=== PATIENT | female | born 1970 | race African-American/Black ===

== ENCOUNTER 2017-07-07 23:03 | Inpatient (IN) | payer OTHER ==
--- NOTE | 2017-07-07 23:38 | PDOC ---
History of Present Illness - General Chief Complaint: Syncope/Near Syncope Stated Complaint: WEAK, DIZZY Time Seen by Provider: 07/07/17 23:23 History Source: Patient - History of Present Illness Initial Comments: 07/07/17 23:34 47-year-old female complaining of 2 episodes of syncope prior to arrival in feeling weak. As her patient hasn't been eating well is drinking lots of fluids. Patient reports one episodes of diarrhea prior to arrival currently with no abdominal pain, nausea, vomiting, chest pain, urinary symptoms, diaphoresis patient reports dizziness and feeling weak at this time. Patient has a past medical history of SLE, TTP, end-stage renal disease (Tuesday , Tuesday, Tuesday dialysis) patient is currently on methotrexate, CellCept PMD: Dr. Reyna ([facility]) Rheumatology: Dr. Jacobo([facility]) Past History - Past Medical History Allergies/Adverse Reactions: Allergies Allergy/AdvReac Type Severity Reaction Status Date / Time Penicillins Allergy Rash Verified 07/08/17 01:12 tramadol Allergy Rash Verified 07/08/17 01:12 Review of Systems - Review of Systems Able to Perform ROS?: Yes Constitutional: Yes: Weakness Cardiac (ROS): No: Symptoms Reported, See HPI, Chest Pain, Edema, Irregular Heart Rate, Lightheadedness, Palpitations, Syncope, Chest Tightness, Other ABD/GI: No: Symptoms Reported, See HPI, Abdominal Distended, Abd. Pain w/ defecation, Blood Streaked Bowels, Constipated, Diarrhea, Difficulty Swallowing , Nausea, Poor Appetite, Poor Fluid Intake, Rectal Bleeding, Vomiting, Indigestion, Abdominal cramping, Tarry Stools, Other Neurological: Yes: Weakness, Dizziness *Physical Exam - Vital Signs Last Vital Signs Temp Pulse Resp BP Pulse Ox 99.1 F 76 18 107/71 100 07/07/17 23:25 07/07/17 23:25 07/07/17 23:25 07/07/17 23:25 07/07/17 23:25 - Physical Exam General Appearance: Yes: Appropriately Dressed HEENT: positive: Other (alopecia. nomorcephalic) Respiratory/Chest: positive: Lungs Clear, Normal Breath Sounds Cardiovascular: positive: Regular Rhythm, Regular Rate Gastrointestinal/Abdominal: positive: Normal Bowel Sounds, Soft, Pulsatile Mass Musculoskeletal: positive: Normal Inspection Extremity: positive: Other (dry mouth) Integumentary: positive: Dry, Warm, Pale Neurologic: positive: Fully Oriented, Alert Heart Score/ECG Review - ECG Intrepretation Rhythm: Regular Rhythm Comment:: 07/08/17 01:56 NSR 78 bpm . nonspecific t wave abnormality. prolonged QT 424/483ms ED Treatment Course - LABORATORY CBC & Chemistry Diagram: 07/07/17 23:45 07/07/17 23:45 - ADDITIONAL ORDERS Additional order review: Laboratory Results 07/07/17 07/07/17 07/07/17 23:45 23:45 23:45 PT with INR 13.60 H INR 1.20 H Sodium 132 L Potassium 3.2 L Chloride 93 L Carbon Dioxide 25 Anion Gap 14 BUN 37 H Creatinine 5.8 H Creat Clearance w eGFR 7.75 Random Glucose 105 Calcium 8.8 Magnesium 1.8 Total Bilirubin 0.5 AST 12 L ALT 14 Alkaline Phosphatase 77 Creatine Kinase 31 Troponin I 0.04 Total Protein 7.1 Albumin 3.3 L Serum , Qual Negative 07/07/17 07/07/17 23:45 11:45 RBC 3.42 L MCV 79.0 L MCHC 33.3 RDW 14.1 MPV 7.5 Neutrophils % No Result Required. Lymphocytes % No Result Required. - RADIOLOGY Radiology Studies Ordered: Category Date Time Status HEAD CT WITHOUT CONTRAST [CT] Stat CT Scan 07/08/17 00:03 Taken CHEST X-RAY PORTABLE* [RAD] Stat Radiology 07/07/17 23:36 Completed Radiograph Interpretation: 07/08/17 02:34 IMPRESSION: No acute intracranial hemorrhage mass effect or midline shift. Mild nonspecific periventricular predominant low density throughout the deep white matter is most likely due to mild small vessel ischemic white matter disease. Chronic right parietal and occipital lobe white matter and cortical infarcts encephalomalacia. Chronic bilateral frontal lobe white matter infarction encephalomalacia. No evidence of a large territory of subacute stroke. - Medications Given in the ED: ED Medications Discontinued Medications Generic Name Dose Route Start Last Admin Trade Name Freq PRN Reason Stop Dose Admin Potassium Chloride 20 meq 07/08/17 00:42 07/08/17 01:12 K-Dur - PO 07/08/17 00:43 20 meq ONCE ONE Administration Sodium Chloride 250 ml 07/08/17 01:55 07/08/17 02:08 Normal Saline - IV 07/08/17 01:56 250 ml ONCE ONE Administration Progress Note - Progress Note Progress Note: [facility] contacted. Patient most recent admission 01/2017 for AMS . hospital course complicated by renal failure with hemodialysis., refractory TTP and intubation, and prolonged hospital stay. Patient seen by rheumatology 05/2017 CBC hgb/plt : 5.2/203. patient was seen by dermatology yesterday with CBC / PLT 1.0/86. methotrexate started 1 month ago. A: neutropenia likely methotrexate induced. pancytopenia; syncope P: cbc cmp blood culture ua urine culture normal saline bolus 250ml potassium x1. Medical Decision Making - Medical Decision Making 07/08/17 01:44 patient is requesting to be transferred back to [facility] as patient's team of doctors are there. transfer center at [facility] called. pending called back from medicine service. 07/08/17 01:45 unable to have accepting physcian at [facility]. patient to be admitted at [facility] . hospitalist service paged 07/08/17 03:[address] oconnor *DC/Admit/Observation/Transfer Diagnosis at time of Disposition: Syncope and collapse, Pancytopenia Neutropenia Qualifiers: Neutropenia type: other drug-induced Qualified Code(s): D70.2 - Other drug- induced agranulocytosis Head trauma Qualifiers: Encounter type: initial encounter Qualified Code(s): S09.90XA - Unspecified injury of head, initial encounter - Discharge Dispostion Admit: Yes - Referrals Referrals: Primo Reyna MD [Primary Care Provider] - - Patient Instructions - Post Discharge Activity
[2017-07-07 23:55] LABS: MCH 26.3 pg (25.7-33.7); MCHC 33.3 g/dl (32.0-36.0); MEAN PLT VOLUME 7.5 fl (7.5-11.1); PLATELET COUNT 65 K/MM3 (134-434); RBC 3.42 M/mm3 (3.60-5.2); RDW 14.1 % (11.6-15.6)
[2017-07-08 00:02] LABS: WHITE BLOOD COUNT 0.7 K/mm3 (4.0-10.0)
[2017-07-08 00:11] LABS: INR 1.2 (0.82-1.09); PROTHROMBIN TIME (PATIENT) 13.6 SEC (9.98-11.88)
[2017-07-08 00:20] LABS: ALBUMIN 3.3 g/dl (3.4-5.0); ANION GAP 14 (8-16); BILIRUBIN,TOTAL 0.5 mg/dL (0.2-1.0); BLOOD UREA NITROGEN 37 mg/dL (7-18); CALCIUM 8.8 mg/dL (8.5-10.1); CHLORIDE 93 mmol/L (98-107); CO2 25 mmol/L (21-32); CREATININE 5.8 mg/dL (0.55-1.02); GLUCOSE,RANDOM 105 mg/dL (74-106); MAGNESIUM 1.8 mg/dL (1.8-2.4); POTASSIUM 3.2 mmol/L (3.5-5.1); SGOT/AST 12 U/L (15-37); SGPT/ALT 14 U/L (12-78); SODIUM 132 mmol/L (136-145)
[2017-07-08 00:23] LABS: ALK PHOS 77 U/L (45-117); TOT PROT 7.1 g/dl (6.4-8.2)
[2017-07-08] MEDS ORDERED: POTASSIUM CHLORIDE TABS 20 MEQ TABLET.ER (FP) PO ONE ×2 (00:42→11:45)
--- NOTE | 2017-07-08 00:51 | PDOC ---
*Physical Exam - Vital Signs Last Vital Signs Temp Pulse Resp BP Pulse Ox 99.1 F 76 18 107/71 100 07/07/17 23:25 07/07/17 23:25 07/07/17 23:25 07/07/17 23:25 07/07/17 23:25 - Physical Exam Comments: 07/08/17 00:46 pt is awake, alopecia, speaking in full sentences, moving all extremities no complaints of cp states mild rhinorrhea yesterday no cough, no abd pain. no n/v/d. No fevers. c/o feeling cold today. ED Treatment Course - LABORATORY CBC & Chemistry Diagram: 07/07/17 23:45 07/07/17 23:45 - ADDITIONAL ORDERS Additional order review: Laboratory Results 07/07/17 11:45 Sodium 132 L Potassium 3.2 L Chloride 93 L Carbon Dioxide 25 Anion Gap 14 BUN 37 H Creatinine 5.8 H Creat Clearance w eGFR 7.75 Random Glucose 105 Calcium 8.8 Magnesium 1.8 Total Bilirubin 0.5 AST 12 L ALT 14 Alkaline Phosphatase 77 Creatine Kinase 31 Troponin I 0.04 Total Protein 7.1 Albumin 3.3 L 07/07/17 11:45 RBC 3.42 L MCV 79.0 L MCHC 33.3 RDW 14.1 MPV 7.5 Neutrophils % No Result Required. Lymphocytes % No Result Required. Medical Decision Making - Medical Decision Making 07/08/17 00:48 47yo female with syncope x 2 tonight, hit her head tonight -on methotrexate x 1 month -also on cellcept and prednisone for lupus -will check labs, ekg, cxr, trop, head ct -currently on HD - m.w.f -all docs are at [facility] 07/08/17 00:50 pt with pancytopenia and severe neutropenia on labs poss bone marrow reaction to methotrexate per [facility] labs yesterday - wbc was 1 yesterday 07/08/17 00:51 pt updated on her labs pt requesting transfer to [facility] for admission. states all her physicians are at [facility] and she wants to be treated there. 07/08/17 00:59 call placed to [facility] to arrange for transfer and admission for pancytopenia, neutropenia pt requesting transfer 07/08/17 01:43 currently pending call back from [facility] for transfer *DC/Admit/Observation/Transfer Diagnosis at time of Disposition: Syncope and collapse, Pancytopenia Neutropenia Qualifiers: Neutropenia type: other drug-induced Qualified Code(s): D70.2 - Other drug- induced agranulocytosis Head trauma Qualifiers: Encounter type: initial encounter Qualified Code(s): S09.90XA - Unspecified injury of head, initial encounter - Referrals Referrals: Primo Reyna MD [Primary Care Provider] - - Patient Instructions - Post Discharge Activity
[2017-07-08] MEDS ORDERED: SODIUM CHLORIDE 0.9% 500 ML INFUS.BAG IV ONE (01:55)
[2017-07-08 02:59] LABS: ANISOCYTOSIS 2+; MACROCYTOSIS 0; PLATELET ESTIMATE DECREASED
--- NOTE | 2017-07-08 03:54 | HP ---
CHIEF COMPLAINT: two episodes of syncope x 1 day PCP: Dr. Reyna -[facility] HISTORY OF PRESENT ILLNESS: 47 y/o F with PMH pemphigoid and systemic SLE (dx November 2017; on rituximab, prednisone, cellcept, started on MTX in June. Had been on in the past for bullous pemphigoid however was d/c- did not have reactions to prior), TTP (dx 10 yrs ago, last plasma therapy done in January 2017, has not had plasma therapy since), ESRD (M, W, F; last dialysis Tuesday), recent admission d/c January 2017 [facility] (4 month stay) for complicated admission which included intubation, plasma therapy, who presents to the ED c/o two episodes of syncope. Yesterday evening, pt was at home when she got up from her bed to walk to her nephew's room. Pt felt incredibly weak and ended up falling in the hallway as per . Before the event, pt had dizziness and was told that her legs gave out. Pt had +LOC, head trauma, and woke up while she was being helped off the floor. She does not know how long she was on the ground for, and denies palpitations, or loss of bladder or bowel incontinence during the event. Pt states that a few hours later, she had another episode when walking to the toilet, this time she fell once again in the same form. Both events were witnessed. Over the past few days, pt has no appetite, a generalized KIMBROUGH, and loose BMs. She believes her weakness also stems from her dialysis sessions. She denies recent viral illnesses, fever, chills, chest pain or pressure, or change in urinary habits. Her salad bar clerk at [facility] is Dr. Jacobo. Pt was started on cellcept in January. In May, pt's WBC count was 5, platelets 203. In June, when she was started on MTX, her WBC count was 1, platelets 86. Pt received an alert from [facility] since her count was so low. As per daughter, this evening her doctor at [facility] was reached and stated to stop her MTX d/t to her severe neutropenia. ER course was notable for: (1) Kdur 20mg PO x 1 (2) NaCl 250ms x 1 (3) Head CT Recent Travel: none PAST MEDICAL HISTORY: as above PAST SURGICAL HISTORY: L hip replacement (2011) Social History: Smoking: denies Alcohol: socially Drugs: denies Family History: daughter- passed from lupus age 19. PCN- rash Allergies Penicillins Allergy (Verified 07/08/17 01:12) Rash tramadol Allergy (Verified 07/08/17 01:12) Rash HOME MEDICATIONS: MTX 2.5mg PO - Tuesday PM, Sat AM, Sat PM (3 doses a week) Prednisone - took 15 mg (), will take 12.5mg (Tuesday), 15mg (Tuesday), 12.5 mg (Tuesday) Cellcept: 2000mg REVIEW OF SYSTEMS CONSTITUTIONAL: +generalized weakness, loss of appetite Absent: fever, chills, diaphoresis, generalized weakness, malaise, loss of appetite, weight change HEENT: Absent: rhinorrhea, nasal congestion, throat pain, throat swelling, difficulty swallowing, mouth swelling, ear pain, eye pain, visual changes CARDIOVASCULAR: +syncope Absent: chest pain, syncope, palpitations, irregular heart rate, lightheadedness , peripheral edema RESPIRATORY: Absent: cough, shortness of breath, dyspnea with exertion, orthopnea, wheezing, stridor, hemoptysis GASTROINTESTINAL: Absent: abdominal pain, abdominal distension, nausea, vomiting, diarrhea, constipation, melena, hematochezia GENITOURINARY: Absent: dysuria, frequency, urgency, hesitancy, hematuria, flank pain, genital pain MUSCULOSKELETAL: Absent: myalgia, arthralgia, joint swelling, back pain, neck pain SKIN: Absent: rash, itching, pallor HEMATOLOGIC/IMMUNOLOGIC: Absent: easy bleeding, easy bruising, lymphadenopathy, frequent infections ENDOCRINE: Absent: unexplained weight gain, unexplained weight loss, heat intolerance, cold intolerance NEUROLOGIC: +headache Absent: headache, focal weakness or paresthesias, dizziness, unsteady gait, seizure, mental status changes, bladder or bowel incontinence PSYCHIATRIC: Absent: anxiety, depression, suicidal or homicidal ideation, hallucinations. PHYSICAL EXAMINATION Vital Signs - 24 hr 07/07/17 23:25 Temperature 99.1 F Pulse Rate 76 Respiratory 18 Rate Blood Pressure 107/71 O2 Sat by Pulse 100 Oximetry (%) GENERAL: Pale female, resting comfortably. Awake, alert, and fully oriented, in no acute distress. HEAD: Normal with no signs of trauma. +Alopecia EYES: Pupils equal, round and reactive to light, extraocular movements intact, sclera anicteric, conjunctiva clear. EARS, NOSE, THROAT: Ears normal, nares patent, oropharynx clear without exudates. No oral ulcers noted. Dry mucous membranes NECK: Normal range of motion, supple. LUNGS: Breath sounds equal, clear to auscultation bilaterally. No wheezes, and no crackles. No accessory muscle use. HEART: Regular rate and rhythm, normal S1 and S2 without murmur, rub or gallop. ABDOMEN: Soft, nontender, not distended, normoactive bowel sounds, no guarding, no rebound, no masses. MUSCULOSKELETAL: Normal range of motion at all joints. No bony deformities or tenderness. No CVA tenderness. UPPER EXTREMITIES: 2+ radial pulses, warm, well-perfused. No cyanosis. No clubbing. No peripheral edema. Old lesions on upper extremities LOWER EXTREMITIES: 2+ posterior tibial pulses, warm, well-perfused. No calf tenderness. No peripheral edema. NEUROLOGICAL: Cranial nerves II-XII intact. PSYCHIATRIC: Cooperative. SKIN: Dry Laboratory Results - last 24 hr 07/07/17 07/07/17 07/07/17 11:45 23:45 23:45 WBC 0.7 L* RBC 3.42 L Hgb 9.0 L Hct 27.0 L MCV 79.0 L MCH 26.3 MCHC 33.3 RDW 14.1 Plt Count 65 L MPV 7.5 Neutrophils % (Manual) 0.0 L Band Neutrophils % 0.9 Lymphocytes % (Manual) 72.0 H Monocytes % (Manual) 2 L Eosinophils % (Manual) 8.4 H Basophils % (Manual) 0.0 Myelocytes % (Man) 0 Promyelocytes % (Man) 0 Blast Cells % (Manual) 0 Nucleated RBC % 0 Metamyelocytes 0 Hypochromia 0 Platelet Estimate Decreased Polychromasia 1+ Poikilocytosis 1+ Anisocytosis 2+ Microcytosis 2+ Macrocytosis 0 PT with INR 13.60 H INR 1.20 H Albumin 07/07/17 07/07/17 23:45 23:45 PT with INR Sodium 132 L Potassium 3.2 L Chloride 93 L Carbon Dioxide 25 Anion Gap 14 BUN 37 H Creatinine 5.8 H Creat Clearance w eGFR 7.75 Random Glucose 105 Calcium 8.8 Magnesium 1.8 Total Bilirubin 0.5 AST 12 L ALT 14 Alkaline Phosphatase 77 Creatine Kinase 31 Troponin I 0.04 Total Protein 7.1 Albumin 3.3 L Serum , Qual Negative Micro -Blood cx - pending Radio -Head CT non-con: without signs of hemorrhage or infarct, however awaiting official read -CXR: without infiltrates or pleural effusions -EKG: NSR, non specific T wave changes, prolonged Qtc 483ms ASSESSMENT/PLAN: 47 y/o F with PMH pemphigoid and systemic SLE (dx November 2017; on rituximab, prednisone, cellcept, started on MTX in June), TTP (dx 10 yrs ago, last plasma therapy done in January 2017, has not had plasma therapy since), ESRD (M, W, F; last dialysis Tuesday), recent admission January 2017 [facility] for complicated admission which included intubation, plasma therapy, who presents to the ED c/o two episodes of syncope. Pt admitted to tele-obs for syncope. #Syncope likely 2/2 recent decreased PO intake -determine vasovagal, 2/2 weakness, cardiogenic, etc. -Likely 2/2 weakness, decreased PO intake -CTH: without signs of hemorrhage, however awaiting official report -Orthostatic vital signs -F/u ECHO -F/u Carotid doppler test -Telemetry monitoring -No need for IVF at this time; pt ESRD #Neutropenia, pancytopenia likely 2/2 MTX cellcept adverse effect -Will hold MTX an cellcept -Continue to watch for any signs of fever, can become emergent -Started on granix 350 mcg SQ daily to stim cell lines -Discuss with Information Analyst at [facility] - Dr. Jacobo -Neutropenic precautions -Rheum consult- Dr. Cohn #Pemphigoid, systemic SLE -Continue 12.5mg PO Prednisone (Tuesday), 15 (Tuesday), 12.5 (Tuesday) -Will need to verify rest of course -Will hold the following as can contribute to pancytopenia: cellcept 2000mg qd, MTX 2.5 mg PO qd #TTP -Continue outpatient f/u -Last plasma therapy in January 2017 -Heme consult - Dr. Song #ESRD -renal fnc likely worsened by TTP as well -Last session Tuesday -will need dialysis Tuesday - has R chest port site -Nephro consult- Dr. Story #Hypokalemia likely 2/2 ESRD -Received Kdur 20mg PO x 1 in ED -F/u BMP to monitor level -Replete as needed #F/E/N No fluids at this time - ESRD, will see renal serial lytes renal diet #PPX DVT: SCD's #Dispo Telemetry observation Visit type - Emergency Visit Emergency Visit: Yes ED Registration Date: 07/08/17 Care time: The patient presented to the Emergency Department on the above date and was hospitalized for further evaluation of their emergent condition. - New Patient This patient is new to me today: No - Critical Care Critical Care patient: No Hospitalist Screening - Colonoscopy Questionnaire Colonoscopy Questionnaire: Colonoscopy Questionnaire - Patient: 50 - 75 years old and never had a screening colonoscopy: Unknown History of colon or rectal polyps, or CA: Unknown History of IBD, Crohn's disease or UC: Unknown History of abdominal radiation therapy as a child: Unknown - Relative: 1 with colon or rectal CA, or polyps at age 60 or younger: Unknown Colon or rectal CA diagnosed at age 45 or younger: Unknown Multiple relatives with colon or rectal CA: Unknown - Outcome: Screening Result: Negative Screen
--- NOTE | 2017-07-08 04:31 | PN ---
Teaching Attending Note Name of Resident: Yue Miguel ATTENDING PHYSICIAN STATEMENT I saw and evaluated the patient. Chart, data reviewed. I reviewed the resident's note and discussed the case with the resident. I agree with the resident's findings and plan as documented. SUBJECTIVE: 47 y/o F with PMH bullous pemphigoid and systemic SLE (dx November 2017; on rituximab, prednisone, cellcept, started on MTX in June. Recent prolonged hospitalizations in [facility], admitted for TTP, resp failure, requiring intubation. Underwent plasmapheresis, complicated by [place] and subsequent ESRD, requiring HD. Patient now was found to be pancytopenic in ER (after starting methotrexate recently). On 07/07, patient experienced syncope x2 when walking. SHe did not have any shortness of breath, chest pain, or seizure episodes. august OBJECTIVE: Last Vital Signs Temp Pulse Resp BP Pulse Ox 98.7 F 89 18 140/89 95 07/08/17 04:22 07/08/17 04:22 07/08/17 04:22 07/08/17 04:22 07/08/17 05:30 General- appears chronically ill HEENT - alopecia, moist oral mucosa, no sinus tenderness neck -supple, scar in neck s/p catheter cv -s1+s2 + rrr chest- cta b/l , right chest HD catheter abdomen- soft, nt, no masses appreciated Ext- no pedal edema, warm Abnormal Lab Results 07/07/17 07/07/17 07/07/17 23:45 23:45 23:45 WBC 0.7 L* RBC 3.42 L Hgb 9.0 L Hct 27.0 L MCV 79.0 L Plt Count 65 L Neutrophils % (Manual) 0.0 L Lymphocytes % (Manual) 72.0 H Monocytes % (Manual) 2 L Eosinophils % (Manual) 8.4 H PT with INR 13.60 H INR 1.20 H Sodium 132 L Potassium 3.2 L Chloride 93 L BUN 37 H Creatinine 5.8 H AST 12 L Albumin 3.3 L ASSESSMENT AND PLAN: #Syncope x2 - may be related to poor PO intake. Should r/o vasovagal, orthostatic, or arrythmias. EKG with no ST- T changes. Troponin was negative x1. CT of head is negative for bleeds on my read. -observation-tele -repeat EKG -transthoracic echo -repeat troponin -check orthostatics -bed rest -fall precautions #Pancytopenia - likely 2/2 medications -such as methotrexate as she was recently started on this medication. Cellcept may contribute to this. No evidence of bleeding or infections. NO fevers. -hold cellcept and methorexate -will give filgastrim -monitor CBC -heme/onc evaluation -contact physicians at [facility] to obtain medical records #ESRD requiring HD -renal evaluation for HD DVT ppx -SCDs, avoid heparin in light of thrombocytopenia
[2017-07-08] MEDS ORDERED: ACETAMINOPHEN 325 MG TABLET (FP) PO ONE (05:41)
[2017-07-08] MEDS ORDERED: TBO-FILGRASTIM 300 MCG/0.5 ML DISP.SYRINGE SQ SCH (06:00)
[2017-07-08] MEDS ORDERED: LABETALOL HCL 100 MG TABLET (FP) PO SCH ×2 (06:00→08:00)
[2017-07-08 06:12] VITALS: BMI 25.7
[2017-07-08] MEDS ORDERED: LABETALOL HCL 100 MG TABLET (FP) ONE ×2 (06:51→12:53)
[2017-07-08] MEDS ORDERED: LABETALOL HCL 200 MG TABLET (FP) ONE ×2 (06:51→12:53)
[2017-07-08] MEDS: TBO-FILGRASTIM 300 MCG/0.5 ML DISP.SYRINGE SQ SCH ×2 (06:54→12:44)
[2017-07-08] MEDS: hydrALAZINE HCL 50 MG TABLET (FP) PO SCH ×2 (06:55→13:13)
[2017-07-08] MEDS: LABETALOL HCL 200 MG, LABETALOL HCL 100 MG PO SCH ×2 (06:55→13:12)
[2017-07-08] MEDS ORDERED: PATIENT'S OWN MEDICATION (NON-FORMULARY) (Oxycodone Hcl [Oxycodone Hcl] 10 MG) PO SCH (07:15)
[2017-07-08] MEDS ORDERED: ACETAMINOPHEN 325 MG TABLET (FP) PO PRN (07:53)
[2017-07-08] MEDS ORDERED: predniSONE 1 MG TABLET (FP) PO ONE (08:00)
[2017-07-08] MEDS ORDERED: PREDNISONE PO ONE (08:00)
[2017-07-08] MEDS ORDERED: predniSONE 10 MG TABLET (UD) ONE (08:14)
[2017-07-08] MEDS: oxyCODONE HCL 5 MG TABLET PO PRN ×2 (08:17→13:12)
[2017-07-08] MEDS ORDERED: hydrALAZINE HCL 50 MG TABLET (FP) PO SCH (09:00)
[2017-07-08 09:28] LABS: HEMATOCRIT 25.5 % (32.4-45.2); HEMOGLOBIN 8.5 GM/dL (10.7-15.3); MCH 26.1 pg (25.7-33.7); MCHC 33.4 g/dl (32.0-36.0); MEAN CELL VOLUME 78.1 fl (80-96); MEAN PLT VOLUME 7.3 fl (7.5-11.1); PLATELET COUNT 68 K/MM3 (134-434); RBC 3.26 M/mm3 (3.60-5.2); RDW 14.5 % (11.6-15.6)
[2017-07-08 09:37] LABS: ANION GAP 17 (8-16); BLOOD UREA NITROGEN 42 mg/dL (7-18); CALCIUM 9.1 mg/dL (8.5-10.1); CHLORIDE 94 mmol/L (98-107); CO2 23 mmol/L (21-32); CREATININE 6.4 mg/dL (0.55-1.02); GLUCOSE,RANDOM 99 mg/dL (74-106); MAGNESIUM 1.9 mg/dL (1.8-2.4); POTASSIUM 3.4 mmol/L (3.5-5.1); SODIUM 134 mmol/L (136-145)
[2017-07-08 09:59] LABS: WHITE BLOOD COUNT 1.3 K/mm3 (4.0-10.0)
[2017-07-08] MEDS ORDERED: RANITIDINE HCL 150 MG TABLET (FP) PO SCH (10:00)
--- NOTE | 2017-07-08 10:10 | EKG ---
Test Reason : Blood Pressure : / mmHG Vent. Rate : 078 BPM Atrial Rate : 078 BPM P-R Int : 148 ms QRS Dur : 074 ms QT Int : 424 ms P-R-T Axes : 036 047 -18 degrees QTc Int : 483 ms NORMAL SINUS RHYTHM NONSPECIFIC T WAVE ABNORMALITY PROLONGED QT ABNORMAL ECG NO PREVIOUS ECGS AVAILABLE Confirmed by DEVON LOVE MD ([id number]) on 07/08/2017 10:09:40 AM Referred By: Confirmed By:DEVON LOVE MD
[2017-07-08 10:44] LABS: RETICULOCYTES 0.83 % (0.5-1.5)
[2017-07-08] MEDS ORDERED: predniSONE 20 MG TABLET (UD) PO ONE (10:58)
--- NOTE | 2017-07-08 11:02 | CONSULT ---
Consult Consult Specialty:: Hematology - History of Present Illness History of Present Illness: 47 y/o F with PMH bullous pemphigoid and systemic SLE (dx November 2017; on rituximab, prednisone, cellcept, started on MTX in June. Recent prolonged hospitalizations in [facility], admitted for TTP, resp failure, requiring intubation. Underwent plasmapheresis, complicated by DAKOTA and subsequent ESRD, requiring HD. Patient now was found to be pancytopenic in ER (after starting methotrexate recently). On 07/07, patient experienced syncope x2 when walking. SHe did not have any shortness of breath, chest pain, or seizure episodes. Pt seen and examined. feels better than yesterday. no further headaches - History Source History Provided By: Patient, Medical Record - Past Medical History ...: No - Alcohol/Substance Use Hx Alcohol Use: Yes (occassional drink) - Smoking History Smoking history: Never smoked Have you smoked in the past 12 months: No Home Medications - Allergies Allergies/Adverse Reactions: Allergies Allergy/AdvReac Type Severity Reaction Status Date / Time Penicillins Allergy Rash Verified 07/08/17 01:12 tramadol Allergy Rash Verified 07/08/17 01:12 - Home Medications Home Medications: Ambulatory Orders Cellcept 2 tab PO BID 07/08/17 Famotidine 20 mg PO DAILY 07/08/17 Hydralazine HCl 50 mg PO Q8H 07/08/17 Labetalol HCl 300 mg PO Q8H 07/08/17 Oxycodone HCl 10 mg PO Q4H PRN 07/08/17 Prednisone 15 mg PO DAILY 07/08/17 predniSONE [Deltasone -] 12.5 mg PO DAILY 07/08/17 Review of Systems - Review of Systems Constitutional: reports: Loss of Appetite. denies: Chills, Diaphoresis, Fever, Lethargy, Night Sweats Eyes: denies: Blind Spots, Blurred Vision, Photophobia, Recent Change in Vision HENT: denies: Difficult Swallowing, Ear Discharge Neck: denies: Decreased ROM Cardiovascular: denies: Chest Pain, Edema, Palpitations, Shortness of Breath Respiratory: denies: Cough, Exercise Intolerance, Hemoptysis Gastrointestinal: denies: Abdominal Pain, Bloating Genitourinary: denies: Burning Musculoskeletal: reports: No Symptoms Integumentary: denies: Rash Neurological: reports: No Symptoms Endocrine: reports: No Symptoms Hematology/Lymphatic: reports: No Symptoms Psychiatric: reports: No Symptoms Physical Exam Vital Signs: Vital Signs Temperature 98.4 F 07/08/17 05:30 Pulse Rate 89 07/08/17 05:30 Respiratory Rate 18 07/08/17 05:30 Blood Pressure 129/84 07/08/17 05:30 O2 Sat by Pulse Oximetry (%) 95 07/08/17 05:30 Constitutional: Yes: No Distress, Calm Eyes: Yes: Conjunctiva Clear HENT: Yes: Atraumatic, Normocephalic Neck: Yes: Trachea Midline Cardiovascular: Yes: Regular Rate and Rhythm Respiratory: Yes: Regular, CTA Bilaterally Gastrointestinal: Yes: Normal Bowel Sounds, Soft Extremities: Yes: WNL Edema: No Labs: CBC, BMP 07/08/17 08:35 07/08/17 08:35 Imaging - Results Cat Scan: Report Reviewed Problem List - Problems (1) Neutropenia Code(s): D70.9 - NEUTROPENIA, UNSPECIFIED Qualifiers: Neutropenia type: other drug-induced Qualified Code(s): D70.2 - Other drug- induced agranulocytosis (2) Pancytopenia Code(s): D61.818 - OTHER PANCYTOPENIA (3) Syncope and collapse Code(s): R55 - SYNCOPE AND COLLAPSE (4) ESRD (end stage renal disease) on dialysis Code(s): N18.6 - END STAGE RENAL DISEASE; Z99.2 - DEPENDENCE ON RENAL DIALYSIS Assessment/Plan Pancytopenia: differential: MTX induced, ?lupus flare ?relapsing secondary TTP ( LDH not impressive, 200 , very rare schistocytes, non reportable). ?etiology of syncopal episode. CTH negative here Stat labs Broad spectrum abx Give 1mg/kg of prednisone now will review peripheral smear Renal eval , due for HD today repeat labs in the evening Pt not on systemic anticoagulation. Hold MTX Reviewed her chart in [facility]. was seen yesterday by Derm at [facility] and was noted to have pancytopenia. Was instructed to hold MTX. Complicated Hx of Multi-organ involvement of SLE. (high titers, skin, kidney, BM ). hx of prolonged hospitalization from 11/2016-01/2017. Patient would need to be transferred to [facility]. Accordingly, calls made and case discussed with Rheum/Heme/Internal medicine physicians at [facility] , who concurs plan to be transferred. all arrangements made. Await bed availability d/w over the phone, , Hospitalist team. Will be continued on the plan above in the interim. tt 60min
[2017-07-08 11:11] LABS: LDH 201 U/L (84-246)
[2017-07-08 11:26] LABS: ANISOCYTOSIS 2+; PLATELET ESTIMATE DECREASED
--- NOTE | 2017-07-08 11:31 | CONSULT ---
Consult - text type - Consultation Consultation Note: Renal Consult for ESRD on HD This is a 47 year old woman with PMhx of ESRD on HD secondary to SLE (started HD last november), Hx of TTP who presented from home with syncope x 2 and weakness and found to have pancytopenia. Pt gets outpatient dialysis at [facility] in the [place]. Last dialysis was Tuesday. Pt still makes urine. Has a tunneled HD catheter. Denies any CP, SOB, Abd santana, N/V/D. No fevers, chills. No further dizziness or syncope once admitted. PMhx: as above Allergies: PCN Family hx: NC Social hx: No T/A/D ROS: As per HPI Home Medications Medication Instructions Recorded Cellcept 2 tab PO BID 07/08/17 Famotidine 20 mg PO DAILY 07/08/17 Hydralazine HCl 50 mg PO Q8H 07/08/17 Labetalol HCl 300 mg PO Q8H 07/08/17 Oxycodone HCl 10 mg PO Q4H PRN 07/08/17 Prednisone 15 mg PO DAILY 07/08/17 predniSONE [Deltasone -] 12.5 mg PO DAILY 07/08/17 Vital Signs Temperature 98.4 F 07/08/17 05:30 Pulse Rate 89 07/08/17 05:30 Respiratory Rate 18 07/08/17 05:30 Blood Pressure 129/84 07/08/17 05:30 O2 Sat by Pulse Oximetry (%) 95 07/08/17 05:30 Intake & Output 07/05/17 07/06/17 07/07/17 07/08/17 23:59 23:59 23:59 23:59 Intake Total 130 Balance 130 Weight 70.307 kg 70.307 kg NAD awake and alert RRR, No M/R CTA soft NT/ND NO LE edema, clubbing or cyanosis Right IJ tunneled HD catheter no flank pain no focal neurologic defects CBC, BMP 07/08/17 08:35 07/08/17 08:35 Current Medications Acetaminophen (Tylenol -) 650 mg PO Q6H PRN PRN Reason: PAIN LEVEL 1-5 Hydralazine HCl (Apresoline -) 50 mg PO TID SARIKA Last Admin: 07/08/17 06:55 Dose: Not Given Vancomycin HCl 1,000 mg/ (Dextrose) 250 mls @ 250 mls/hr IVPB ONCE ONE PRN Reason: Protocol Stop: 07/08/17 12:44 Labetalol HCl 200 mg/ (Labetalol HCl 100 mg) 300 mg PO TID [facility] Last Admin: 07/08/17 06:55 Dose: Not Given Oxycodone HCl (Roxicodone -) 10 mg PO Q4H PRN PRN Reason: PAIN LEVEL 6-10 Last Admin: 07/08/17 08:17 Dose: 10 mg Potassium Chloride (K-Dur -) 40 meq PO ONCE ONE Stop: 07/08/17 11:46 Prednisone (Deltasone -) 15 mg PO ONCE ONE Stop: 07/09/17 08:01 Prednisone 10 mg/ Prednisone 2 (.5 mg) 12.5 mg PO ONCE ONE Stop: 07/10/17 08:01 Prednisone (Deltasone -) 70 mg PO ONCE ONE Stop: 07/08/17 10:59 Ranitidine HCl (Zantac -) 150 mg PO DAILY [facility] Tbo-Filgrastim (Granix -) 300 mcg SQ DAILY [facility] Last Admin: 07/08/17 06:54 Dose: 300 mcg 47 year old woman with PMhx of ESRD on HD secondary to SLE (started HD last november), Hx of TTP who presented from home with syncope x 2 and weakness and found to have pancytopenia. #ESRD on HD #Syncope #Pancytopnenia #SLE #Hx of TTP #Hypokalemia Will arrange for dialysis today as inpatient Tx time 3 hours, 3k bath with UF goal of 1.5-2L as tolerated Will give Epogen with HD continue Tele monitoring as per cardiology Continue Prednisone f holding Cellcept b/c of leukopenia possible transfer to tertiary care center Will follow Wood Story DO
[2017-07-08] MEDS ORDERED: SODIUM CHLORIDE 250 ML IV PRN (11:33)
[2017-07-08] MEDS ORDERED: EPOETIN ALFA 2,000 UNIT/1 ML VIAL IVPUSH ONE (11:33)
[2017-07-08] MEDS ORDERED: VANCOMYCIN 1,000 MG in DEXTROSE 5%-WATER - 250 ML IVPB ONE (11:45)
--- NOTE | 2017-07-08 12:25 | DS ---
Physical Exam: SUBJECTIVE: Patient seen and examined at bedside. She feels better today, but complains of headache this morning. OBJECTIVE: Vital Signs Period Temp Pulse Resp BP Sys/Hernandez Pulse Ox Last 24 Hr 98.4 F-99.1 F 76-89 18-18 107-140/71-89 95-100 PHYSICAL EXAM GENERAL: The patient is awake, alert, and fully oriented, in no acute distress. HEAD: Normal with no signs of trauma. tenderness to palpation in the occipital region. Alopecia noted over the scalp. EYES: PERRL, extraocular movements intact, sclera anicteric, conjunctiva clear. NECK: Trachea midline, full range of motion, supple. LUNGS: Breath sounds equal, clear to auscultation bilaterally, no wheezes, no crackles, no accessory muscle use. HEART: Regular rate and rhythm, S1, S2 without murmur, rub or gallop. ABDOMEN: Soft, nontender, nondistended, normoactive bowel sounds, no guarding, no rebound, no hepatosplenomegaly, no masses. EXTREMITIES: 2+ pulses, warm, well-perfused, no edema. NEUROLOGICAL: Cranial nerves II through X grossly intact. Normal speech, gait not observed. SKIN: Warm, dry, normal turgor, no rashes or lesions noted. LABS Laboratory Results - last 24 hr 07/07/17 07/07/17 07/07/17 11:45 23:45 23:45 WBC 0.7 L* RBC 3.42 L Hgb 9.0 L Hct 27.0 L MCV 79.0 L MCH 26.3 MCHC 33.3 RDW 14.1 Plt Count 65 L MPV 7.5 Neutrophils % No Result Required. Neutrophils % (Manual) 0.0 L Band Neutrophils % 0.9 Lymphocytes % No Result Required. Lymphocytes % (Manual) 72.0 H Monocytes % (Manual) 2 L Eosinophils % (Manual) 8.4 H Basophils % (Manual) 0.0 Myelocytes % (Man) 0 Promyelocytes % (Man) 0 Blast Cells % (Manual) 0 Nucleated RBC % 0 Metamyelocytes 0 Hypochromia 0 Platelet Estimate Decreased Polychromasia 1+ Poikilocytosis 1+ Anisocytosis 2+ Microcytosis 2+ Macrocytosis 0 Retic Count PT with INR 13.60 H INR 1.20 H Sodium Potassium Chloride Carbon Dioxide Anion Gap BUN Creatinine Creat Clearance w eGFR Random Glucose Calcium Magnesium Total Bilirubin AST ALT Alkaline Phosphatase LD Total Creatine Kinase Troponin I C-Reactive Protein Total Protein Albumin Serum , Qual 07/07/17 07/07/17 07/08/17 23:45 23:45 08:35 WBC 1.3 L* D RBC 3.26 L Hgb 8.5 L Hct 25.5 L MCV 78.1 L MCH 26.1 MCHC 33.4 RDW 14.5 Plt Count 68 L MPV 7.3 L Neutrophils % No Result Required. Neutrophils % (Manual) 4.7 L Band Neutrophils % 0.0 Lymphocytes % No Result Required. Lymphocytes % (Manual) 87.0 H* D Monocytes % (Manual) 2 L Eosinophils % (Manual) 2.0 Basophils % (Manual) 0.0 Myelocytes % (Man) 0 Promyelocytes % (Man) 0 Blast Cells % (Manual) 0 Nucleated RBC % 0 Metamyelocytes 4 H D Hypochromia 1+ Platelet Estimate Decreased Polychromasia Poikilocytosis Anisocytosis 2+ Microcytosis 2+ Macrocytosis Retic Count PT with INR INR Sodium 132 L Potassium 3.2 L Chloride 93 L Carbon Dioxide 25 Anion Gap 14 BUN 37 H Creatinine 5.8 H Creat Clearance w eGFR 7.75 Random Glucose 105 Calcium 8.8 Magnesium 1.8 Total Bilirubin 0.5 AST 12 L ALT 14 Alkaline Phosphatase 77 LD Total Creatine Kinase 31 Troponin I 0.04 C-Reactive Protein Total Protein 7.1 Albumin 3.3 L Serum , Qual Negative 07/08/17 07/08/17 07/08/17 08:35 10:15 10:15 WBC RBC Hgb Hct MCV MCH MCHC RDW Plt Count MPV Neutrophils % Neutrophils % (Manual) Band Neutrophils % Lymphocytes % Lymphocytes % (Manual) Monocytes % (Manual) Eosinophils % (Manual) Basophils % (Manual) Myelocytes % (Man) Promyelocytes % (Man) Blast Cells % (Manual) Nucleated RBC % Metamyelocytes Hypochromia Platelet Estimate Polychromasia Poikilocytosis Anisocytosis Microcytosis Macrocytosis Retic Count 0.83 PT with INR INR Sodium 134 L Potassium 3.4 L Chloride 94 L Carbon Dioxide 23 Anion Gap 17 H BUN 42 H Creatinine 6.4 H Creat Clearance w eGFR Random Glucose 99 Calcium 9.1 Magnesium 1.9 Total Bilirubin AST ALT Alkaline Phosphatase LD Total 201 Cancelled Creatine Kinase Troponin I C-Reactive Protein 5.8 H Cancelled Total Protein Albumin Serum , Qual HOSPITAL COURSE: Date of Admission:07/08/17 The patient is a 47 y/o F with PMH pemphigoid and systemic SLE, ESRD (M, W, F; last dialysis Tuesday), recent admission d/c January 2017 [facility] (4 month stay ) for complicated admission which included intubation and plasma therapy who presented to the ED c/o two episodes of syncope. In the ED, the patient was found to be neutropenic to .7. She was admitted for the treatment of her neutropenia. Her immune modulating medications were held at the instruction of her scouring pads supervisor, Dr. Jacobo. Hematology was consulted. Nephrology was consulted. A CT of the head showed no acute pathology. A CXR was negative for acute disease. The patient was treated with Vancomycin, oxycodone and presnisone. The patient was initially admitted to telemetry, but was later deemed stable and telemetry was discontinued. Given the complexity of the patient's medical conditions and the fact that she usually follows at [facility] for her care, the decision was made to transfer the patient to [facility] for further management. Date of Discharge: 07/08/17 Minutes to complete discharge: 120 Discharge Summary Reason For Visit: TRAUMATIC INJURY OF HEAD,NEUTROPENIA,PANCYTOPENIA, Current Active Problems ESRD (end stage renal disease) on dialysis (Acute) Head trauma (Acute) Neutropenia (Acute) Pancytopenia (Acute) Syncope and collapse (Acute) Condition: Improved - Instructions Diet, Activity, Other Instructions: You were admitted for the treatment of your low white blood cells and for your lupus. You are being transferred to [facility] so that you can get more comprehensive care for your condition. Please pay attention to the discharge instructions when you are sent home from that hospital as they may change your home medications. If your begin to experience chest pain, shortness of breath or if any of your symptoms get worse, please call your doctor or return to the emergency department. Referrals: Primo Reyna MD [Primary Care Provider] - Disposition: TRANSFER ACUTE CARE/OTHER HOSP - Home Medications Comprehensive Discharge Medication List: Ambulatory Orders Cellcept 2 tab PO BID 07/08/17 Famotidine 20 mg PO DAILY 07/08/17 Hydralazine HCl 50 mg PO Q8H 07/08/17 Labetalol HCl 300 mg PO Q8H 07/08/17 Oxycodone HCl 10 mg PO Q4H PRN 07/08/17 Prednisone 15 mg PO DAILY 07/08/17 predniSONE [Deltasone -] 12.5 mg PO DAILY 07/08/17 This patient is new to me today: Yes Date on this admission: 07/08/17 Emergency Visit: Yes ED Registration Date: 07/08/17 Care time: The patient presented to the Emergency Department on the above date and was hospitalized for further evaluation of their emergent condition. Critical Care patient: No - Discharge Referral Referred to [facility] No
--- NOTE | 2017-07-08 16:01 | PN ---
Teaching Attending Note Name of Resident: Nahun Gonsalez ATTENDING PHYSICIAN STATEMENT I saw and evaluated the patient. I reviewed the resident's note and discussed the case with the resident. I agree with the resident's findings and plan as documented. SUBJECTIVE: Patient complains of headache. OBJECTIVE: Vital Signs Period Temp Pulse Resp BP Sys/Hernandez Pulse Ox Last 24 Hr 98.1 F-99.1 F 68-89 18-19 107-140/71-89 95-100 HEART: S1S2, RRR LUNGS: Clear ABDOMEN: Soft, non-tender, non-distended, normal BS EXTREMITIES: No edema Laboratory Results - last 24 hr 07/07/17 07/07/17 07/07/17 11:45 23:45 23:45 WBC 0.7 L* RBC 3.42 L Hgb 9.0 L Hct 27.0 L MCV 79.0 L MCH 26.3 MCHC 33.3 RDW 14.1 Plt Count 65 L MPV 7.5 Neutrophils % No Result Required. Neutrophils % (Manual) 0.0 L Band Neutrophils % 0.9 Lymphocytes % No Result Required. Lymphocytes % (Manual) 72.0 H Monocytes % (Manual) 2 L Eosinophils % (Manual) 8.4 H Basophils % (Manual) 0.0 Myelocytes % (Man) 0 Promyelocytes % (Man) 0 Blast Cells % (Manual) 0 Nucleated RBC % 0 Metamyelocytes 0 Hypochromia 0 Platelet Estimate Decreased Polychromasia 1+ Poikilocytosis 1+ Anisocytosis 2+ Microcytosis 2+ Macrocytosis 0 ESR Retic Count PT with INR 13.60 H INR 1.20 H Sodium Potassium Chloride Carbon Dioxide Anion Gap BUN Creatinine Creat Clearance w eGFR Random Glucose Calcium Magnesium Total Bilirubin AST ALT Alkaline Phosphatase LD Total Creatine Kinase Troponin I C-Reactive Protein Total Protein Albumin Serum , Qual 07/07/17 07/07/17 07/08/17 23:45 23:45 08:35 WBC 1.3 L* D RBC 3.26 L Hgb 8.5 L Hct 25.5 L MCV 78.1 L MCH 26.1 MCHC 33.4 RDW 14.5 Plt Count 68 L MPV 7.3 L Neutrophils % No Result Required. Neutrophils % (Manual) 4.7 L Band Neutrophils % 0.0 Lymphocytes % No Result Required. Lymphocytes % (Manual) 87.0 H* D Monocytes % (Manual) 2 L Eosinophils % (Manual) 2.0 Basophils % (Manual) 0.0 Myelocytes % (Man) 0 Promyelocytes % (Man) 0 Blast Cells % (Manual) 0 Nucleated RBC % 0 Metamyelocytes 4 H D Hypochromia 1+ Platelet Estimate Decreased Polychromasia Poikilocytosis Anisocytosis 2+ Microcytosis 2+ Macrocytosis ESR Retic Count PT with INR INR Sodium 132 L Potassium 3.2 L Chloride 93 L Carbon Dioxide 25 Anion Gap 14 BUN 37 H Creatinine 5.8 H Creat Clearance w eGFR 7.75 Random Glucose 105 Calcium 8.8 Magnesium 1.8 Total Bilirubin 0.5 AST 12 L ALT 14 Alkaline Phosphatase 77 LD Total Creatine Kinase 31 Troponin I 0.04 C-Reactive Protein Total Protein 7.1 Albumin 3.3 L Serum , Qual Negative 07/08/17 07/08/17 07/08/17 08:35 10:15 10:15 WBC RBC Hgb Hct MCV MCH MCHC RDW Plt Count MPV Neutrophils % Neutrophils % (Manual) Band Neutrophils % Lymphocytes % Lymphocytes % (Manual) Monocytes % (Manual) Eosinophils % (Manual) Basophils % (Manual) Myelocytes % (Man) Promyelocytes % (Man) Blast Cells % (Manual) Nucleated RBC % Metamyelocytes Hypochromia Platelet Estimate Polychromasia Poikilocytosis Anisocytosis Microcytosis Macrocytosis ESR 96 H Retic Count 0.83 PT with INR INR Sodium 134 L Potassium 3.4 L Chloride 94 L Carbon Dioxide 23 Anion Gap 17 H BUN 42 H Creatinine 6.4 H Creat Clearance w eGFR Random Glucose 99 Calcium 9.1 Magnesium 1.9 Total Bilirubin AST ALT Alkaline Phosphatase LD Total 201 Cancelled Creatine Kinase Troponin I C-Reactive Protein 5.8 H Cancelled Total Protein Albumin Serum , Qual Current Medications Generic Name Dose Route Start Last Admin Trade Name Freq PRN Reason Stop Dose Admin Acetaminophen 650 mg 07/08/17 07:53 Tylenol - PO Q6H PRN PAIN LEVEL 1-5 Epoetin Elan 20,000 unit 07/08/17 11:33 Epogen - IVPUSH 07/08/17 11:34 ONCE ONE Hydralazine HCl 50 mg 07/08/17 06:00 07/08/17 13:13 Apresoline - PO 50 mg TID SARIKA Administration Sodium Chloride 250 mls @ 3,000 mls/hr 07/08/17 11:33 Normal Saline - IV 07/09/17 11:33 PRN PRN Hypotension during Dialysis Labetalol HCl 200 mg/ 300 mg 07/08/17 06:15 07/08/17 13:12 Labetalol HCl 100 mg PO 300 mg TID SARIKA Administration Oxycodone HCl 10 mg 07/08/17 07:53 07/08/17 13:12 Roxicodone - PO 10 mg Q4H PRN Administration PAIN LEVEL 6-10 Prednisone 15 mg 07/09/17 08:00 Deltasone - PO 07/09/17 08:01 ONCE ONE Prednisone 10 mg/ Prednisone 2 12.5 mg 07/10/17 08:00 .5 mg PO 07/10/17 08:01 ONCE ONE Prednisone 70 mg 07/09/17 10:00 Deltasone - PO DAILY SARIKA Ranitidine HCl 150 mg 07/08/17 10:00 07/08/17 10:51 Zantac - PO 150 mg DAILY SARIKA Administration Tbo-Filgrastim 300 mcg 07/08/17 06:45 07/08/17 12:44 Granix - SQ Not Given DAILY SARIKA ASSESSMENT AND PLAN: This is a 47 year old woman with a history of HTN, pemphigoid, SLE, TTP, ESRD who presented to the ED after passing out twice. 1. Syncope - Possible orthostatic, vasovagal - Head CT shows indeterminate right thalamic lacunar infarct, chronic bilateral frontal lobe white matter ischemic changes, chronic right occipital white matter changes/encephalomalacia - Echo, carotid dopplers ordered 2. Pancytopenia with history of TTP, SLE, pemphigoid and recent extended hospitalization for multi-organ failure - Methotrexate, CellCept held - On Prednisone - Granix started - Hematology input appreciated - Plan for transfer to [facility] 3. ESRD - Nephrology consult for HD 4. Hypokalemia - Continue to replete potassium 5. Hyponatremia - Improving 6. HTN - Continue Labetalol, Hydralazine
[2017-07-08 19:03] VITALS: BP 114/57; PULSE 75; TEMP 97.7
[2017-07-09] MEDS ORDERED: predniSONE 5 MG TABLET (UD) PO ONE (08:00)
[2017-07-09] MEDS ORDERED: predniSONE 20 MG TABLET (UD) PO SCH (10:00)
[2017-07-10] MEDS ORDERED: PREDNISONE PO ONE (08:00)
[2017-07-10] MEDS ORDERED: predniSONE 10 MG TABLET (UD) PO ONE (08:00)
== END 2017-07-08 18:05 | disposition short-term general hospital (02) | DRG 808 ==
LOC: JER 23:03 → JERBED 07-08 03:12 → J4S 07-08 05:07 → OBSVTOIN 07-08 08:35
PROVIDERS: ADMIT Internal Medicine; ATTEND Internal Medicine
DX: D70.2 Other drug-induced agranulocytosis (principal); N18.6 End stage renal disease; L12.0 Bullous pemphigoid; T45.1X5A Adverse effect of antineoplastic and immunosuppressive drugs, initial encounter; Y92.9 Unspecified place or not applicable; M32.9 Systemic lupus erythematosus, unspecified; E87.6 Hypokalemia; R55 Syncope and collapse; S09.8XXA Other specified injuries of head, initial encounter; W18.39XA Other fall on same level, initial encounter; Y93.89 Activity, other specified; Y92.89 Other specified places as the place of occurrence of the external cause; Z88.0 Allergy status to penicillin; Z99.2 Dependence on renal dialysis
CPT/HCPCS: 36415; 70450-TC; 71045-TC-FY; 80048; 80053; 82550; 83615; 83735; 84484; 84703; 85025; 85044; 85610; 85651; 86140; 87040; 93005; 93010; 93306-TC; 99285-25; G0378; J1447

== ENCOUNTER 2019-02-19 23:02 | Emergency (ER) | payer OTHER ==
[2019-02-19 23:08] VITALS: BP 157/98; PULSE 92; TEMP 98.8
--- NOTE | 2019-02-20 01:24 | PDOC ---
History of Present Illness - General Chief Complaint: Toothache Stated Complaint: TOOTHACHE Time Seen by Provider: 02/20/19 01:24 History Source: Patient - History of Present Illness Initial Comments: 02/20/19 03:10 48 year old female complaining of right upper molar and gum swelling and pain for 1 day. Denies fever/chills.Denies eye pain, orbital swelling, trismus.Patient reports that she is going to the dentist tomorrow requesting pain medicine and antibiotics. Patient has a past medical history of TTP, SLE, ESRD on dialysis M/W/F 02/20/19 03:29 Past History - Past Medical History Allergies/Adverse Reactions: Allergies Allergy/AdvReac Type Severity Reaction Status Date / Time Penicillins Allergy Rash Verified 02/19/19 23:08 tramadol Allergy Rash Verified 02/19/19 23:08 Home Medications: Ambulatory Orders Cellcept 2 tab PO BID 07/08/17 Famotidine 20 mg PO DAILY 07/08/17 Hydralazine HCl 50 mg PO Q8H 07/08/17 Labetalol HCl 300 mg PO Q8H 07/08/17 Oxycodone HCl 10 mg PO Q4H PRN 07/08/17 Prednisone 15 mg PO DAILY 07/08/17 predniSONE [Deltasone -] 12.5 mg PO DAILY 07/08/17 Clindamycin [Cleocin -] 300 mg PO Q6HPO #40 capsule 02/20/19 Oxycodone HCl/Acetaminophen [Percocet 5-325 mg Tablet] 1 tab PO Q6H PRN #10 tablet MDD 4 02/20/19 Anemia: Yes Asthma: No Cancer: No Cardiac Disorders: No CVA: Yes COPD: No DVT: No Dementia: No Diabetes: No Dialysis: Yes (Tuesday, Tuesday and Tuesday) GI Disorders: No Disorders: No HTN: Yes Hypercholesterolemia: No Kidney Stones: No Liver Disease: No Psychiatric Problems: No Seizures: No Thyroid Disease: No Lung CA: No Other medical history: Lupus - Surgical History Orthopedic Surgery: Yes (left hip repl) - Psycho Social/Smoking Cessation Hx Smoking History: Never smoked Have you smoked in the past 12 months: No Information on smoking cessation initiated: No Hx Alcohol Use: No Drug/Substance Use Hx: No Substance Use Type: None Hx Substance Use Treatment: No Review of Systems - Review of Systems Able to Perform ROS?: Yes Is the patient limited Kinyarwanda proficient: No Constitutional: No: Symptoms Reported, See HPI, Chills, Diaphoresis, Fever, Loss of Appetite, Malaise, Night Sweats, Weakness, Weight Stable, Unintentional Wgt. Loss, Unexplained wgt Loss, Other HEENTM: No: Symptoms Reported, See HPI, Eye Pain, Blurred Vision, Tearing, Recent change in vision, Double Vision, Cataracts, Ear Pain, Ocular Prothesis, Ear Discharge, Nose Pain, Nose Congestion, Tinnitus, Nose Bleeding, Hearing Loss , Throat Pain, Throat Swelling, Mouth Pain, Dental Problems, Difficulty Swallowing, Mouth Swelling, Other *Physical Exam - Vital Signs Last Vital Signs Temp Pulse Resp BP Pulse Ox 98.8 F 92 H 20 157/98 96 02/19/19 23:04 02/19/19 23:04 02/19/19 23:04 02/19/19 23:04 02/19/19 23:04 - Physical Exam General Appearance: Yes: Appropriately Dressed HEENT: positive: Other (multiple decayed teethm right upper gum swelling, swelling to right cheek, able to open mouth. no periorbital swelling) Respiratory/Chest: positive: Lungs Clear, Normal Breath Sounds Medical Decision Making - Medical Decision Making 02/20/19 03:32 A: dental abscess P: clindamycin PO pain meds prompt dental follow up and strict return precautions reviewed with patient . patient verbalized under standing. patient had no reaction to percocet. reports pain is controlled. will d/c home Discharge - Discharge Information Problems reviewed: Yes Clinical Impression/Diagnosis: Dental abscess Disposition: HOME - Additional Discharge Information Prescriptions: Clindamycin [Cleocin -] 300 mg PO Q6HPO #40 capsule Oxycodone HCl/Acetaminophen [Percocet 5-325 mg Tablet] 1 tab PO Q6H PRN #10 tablet MDD 4 PRN Reason: Pain - Follow up/Referral Referrals: Primo Reyna MD [Primary Care Provider] - - Patient Discharge Instructions Patient Printed Discharge Instructions: DI for Tooth Decay Additional Instructions: Take Percocet every 6 hours as needed for pain. Take clindamycin every 6 hours as prescribed. Follow-up with the dentist today Return to the emergency room for any worsening symptoms. - Post Discharge Activity Work/Back to School Note: Back to Work
--- NOTE | 2019-02-20 01:26 | PDOC ---
*Physical Exam - Vital Signs Last Vital Signs Temp Pulse Resp BP Pulse Ox 98.8 F 92 H 20 157/98 96 02/19/19 23:04 02/19/19 23:04 02/19/19 23:04 02/19/19 23:04 02/19/19 23:04 Medical Decision Making - Medical Decision Making 02/20/19 01:26 Patient seen by the advanced practice provider under my direct supervision. Ancillary testing reviewed as necessary. I agree with plan as outlined by the advanced practice provider. Discharge - Discharge Information Problems reviewed: Yes Clinical Impression/Diagnosis: Dental abscess - Follow up/Referral Referrals: Primo Reyna MD [Primary Care Provider] - - Patient Discharge Instructions - Post Discharge Activity
[2019-02-20] MEDS ORDERED: CLINDAMYCIN HCL 300 MG CAPSULE PO ONE (02:08)
[2019-02-20] MEDS ORDERED: CLINDAMYCIN HCL 150 MG CAPSULE (FP) ONE (02:58)
== END 2019-02-20 03:45 | disposition home or self-care (01) ==
LOC: JER 23:02
DX: K04.7 Periapical abscess without sinus (principal); I12.0 Hypertensive chronic kidney disease with stage 5 chronic kidney disease or end stage renal disease; N18.6 End stage renal disease; N17.8 Other acute kidney failure; Z99.2 Dependence on renal dialysis; M31.1 Thrombotic microangiopathy; D64.9 Anemia, unspecified; M32.9 Systemic lupus erythematosus, unspecified; Z96.642 Presence of left artificial hip joint; Z88.0 Allergy status to penicillin; Z88.5 Allergy status to narcotic agent
CPT/HCPCS: 99282-25